=== PATIENT | female | born 1980 | race Caucasian/White ===

== ENCOUNTER 2019-01-30 20:03 | Emergency (ER) | payer SELFPAY ==
[2019-01-30 20:04] VITALS: BP 162/94; PULSE 102; RESP 16; TEMP 37.1; O2SAT 98; BMI 27.3
--- NOTE | 2019-01-30 20:34 | ED.VISSUMM ---
- ER Visit Summary Date of Service: 01/30/19 Chief Complaint: Left leg rash History of Present Illness: The patient is a 38 F who states that 2 weeks ago she underwent vein ablation and [facility]. She been doing well until this morning when she looked down at the surgical and site and there is some redness and what appeared to be a little pustule. She popped it and got some pus. And she noticed some faint redness traveling up the medial aspect of the leg. She denies any fevers or myalgias or arthralgias. No further drainage from the site. Physical Examination: Afebrile vital signs are stable Gen: Well-nourished well-developed Head: Normocephalic atraumatic Eyes: Perrl EOMI ENT: TMs clear no rhinorrhea moist mucous membranes Neck: Supple no lymphadenopathy no JVD nontender CVS: Regular rate rhythm no murmurs normal S1-S2 Respiratory: No distress clear to auscultation bilaterally chest nontender Abdomen: Soft nontender nondistended normal bowel sounds no masses Back: Nontender Extremity: There is some faint lymphangitis not overlying the vein over the medial aspect of the left leg. Nothing onto her thigh. Skin: Normal color no rash Neuro: alert orientated ?3 CN II-XII intact normal strength sensation reflexes gait cerebellar Psych: Normal affect normal mood Emergency Department Course and Treatment: I am going to start the patient on Keflex. She is to call her surgeon tomorrow. Return if worsening or concerns Impression: 1. Left leg lymphangitis This note was generated with [employer] dictation software. It may contain incorrect words, spelling, and punctuation that were not noted in review of the chart prior to signing ED Disposition - Plan for ED Patient: Disposition: Home or Assisted Living Instructions: ED Lymphangitis Prescriptions: Cephalexin [Keflex] 500 mg PO Q6 #40 cap Additional Instructions: Please call your surgeon in the morning and update them
[2019-01-30] MEDS: Cephalexin 250 MG Capsule 500 MG PO (20:58)
[2019-01-30 21:03] VITALS: BP 158/74; PULSE 74; PULSE 78; RESP 16; TEMP 37; O2SAT 98
== END 2019-01-30 21:07 | disposition home or self-care (01) ==
PROVIDERS: Emergency Provider Emergency Medicine; Family Provider Internal Medicine; PCP Internal Medicine
DX: I89.1 Lymphangitis (principal); Z98.890 Other specified postprocedural states
CPT/HCPCS: 99283

== ENCOUNTER → 2019-10-02 16:00 | Outpatient (CLI) | payer SELFPAY ==
--- NOTE | 2019-10-02 16:00 | FLU_PTH ---
PATIENT: NOELLE VALLE LOC: [facility] U#:[id number] AGE/SX: 45/F ROOM: RE10/02/[address]: Dr. Petra Millan MD : 1980 BED: DIS: SPEC #: [id number] RECD: 10/03/19 12:20 STATUS: ISAÍAS REQ #: [id number] DONNELL: 10/02/19 16:[address]: Asha Mendez DEPT: CYTOLOGY RECD BY: Oliverio Woody ENTERED: 10/03/19 13:39 SP TYPE: Fluid OTHR DR: Dr. Petra Millan MD Tissues: A - Thyroid gland, NOS B - Thyroid gland, NOS C - Thyroid gland, NOS Procedures: Special Stain Group II Surgery Specimen Level IV Cytospin Fluid Cytology Other Comments: @ Ordering doctor for SSII edited from to @ by JHON at 10/03/19 1416 @ Ordering doctor for SUIV edited from to DR.LWANG Andino by JHON at 10/03/19 1416 @ Ordering doctor for CYSPIN edited from to DR.LWANG Andino by JHON at 10/03/19 1416 @ Ordering doctor for CYOTHER edited from to @ by JHON at 10/03/19 1416 @ Submitting doctor edited from to DR.LWANG Andino by JHON at 10/03/19 1416 HEADER OPERATION: Ultrasound-guided bilateral thyroid fine needle aspiration PRE-OP DIAGNOSIS: Bilateral thyroid nodules TISSUE SUBMITTED: A - FNA right thyroid for cytology, B - FNA right thyroid slides x6, C - FNA left thyroid for cytology DIAGNOSIS CYTOLOGY A. Right thyroid nodule fluid for cytology (cytospin and cell block): The specimen entirely consists of blood only. Follicular cells are not identified. B. Right thyroid nodule, FNA (smears): Consistent with benign follicular nodule. See comment. C. Left thyroid nodule fluid for cytology (cytospin and cell block): Consistent with cyst contents. See cytology study and comment. SJ:brian 10/06/19 COMMENT B. The specimen is paucicellular, however, meets the minimal criteria for adequacy of the specimen. Correlation with clinical, radiologic findings and appropriate follow up are necessary. CYTOLOGY STUDY Slides are reviewed. C. The specimen entirely consists of macrophages. Follicular cells are not identified. The specimen s limited in evaluation due to lack of follicular cells. CYTOLOGY GROSS A - Received is 35 ml of hazy colorless fluid labeled with the patient's name and and designated per the requisition as right thyroid. Submitted for cytology preparation including cell block. B - Received are six smears labeled with the patient's name and designated per the requisition as right thyroid. Submitted for staining. C - Received is 45 ml of hazy cloudy, dark brown fluid labeled with the patient's name and and designated per the requisition as left thyroid. Submitted for cytology preparation including cell block. / brian 10/03/19 TC:5 CPT: 04771 x2, 15838 x2, 00991
== END ==
PROVIDERS: PCP Internal Medicine; Referring Provider Internal Medicine; Visit Provider Internal Medicine
DX: E04.2 Nontoxic multinodular goiter (principal)
CPT/HCPCS: 88108; 88161; 88305; 88313